=== PATIENT | male | born 1990 | race American Indian/Alaskan Native ===

== ENCOUNTER 2021-05-07 03:15 | Emergency (ER) | payer OTHER ==
[2021-05-07 03:33] VITALS: BP 127/77
[2021-05-07] MEDS ORDERED: IBUPROFEN 600 MG TAB PO ONE (04:31)
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
== END 2021-05-07 05:58 | disposition home or self-care (01) ==
LOC: ED 03:15
DX: S29.012A Strain of muscle and tendon of back wall of thorax, initial encounter (principal); M62.838 Other muscle spasm; F17.200 Nicotine dependence, unspecified, uncomplicated; V89.2XXA Person injured in unspecified motor-vehicle accident, traffic, initial encounter; W22.11XA Striking against or struck by driver side automobile airbag, initial encounter; Y93.89 Activity, other specified; Y92.488 Other paved roadways as the place of occurrence of the external cause; Y99.8 Other external cause status
CPT/HCPCS: 72040; 72070; 99283